=== PATIENT | male | born 1960 | race Caucasian/White ===

== ENCOUNTER 2017-07-20 22:32 | Observation (INO) ==
[2017-07-20] MEDS ORDERED: Prochlorperazine 10 MG/2 ML VIAL IVP ONE (22:45)
--- NOTE | 2017-07-20 22:48 | Emergency Department Note ---
Disposition Clinical Impression: Vertigo Nausea & vomiting Qualifiers: Vomiting type: unspecified Vomiting Intractability: unspecified Qualified Code( s): R11.2 - Nausea with vomiting, unspecified Disposition: Admitted As Inpatient Dizziness HPI - General Stated Complaint: CORIE, vomiting Time Seen by Provider: 07/20/17 22:35 Source: patient Limitations: no limitations Nursing Notes Reviewed: Yes Vital Signs Reviewed: Yes - History of Present Illness Pt Subjective Complaint: dizziness Onset (ago): hour(s) Timing: sudden onset Description: sense of movement, "room spinning" History of similar episodes: Yes (h/o vertigo) History of trauma: No Improves with: remaining still Worsens with: movement, position Associated symptoms: Reports: nausea, vomiting. Denies: ataxia, chest pain, confusion, diaphoresis, fever, chills, malaise, shortness of breath, syncope, weakness, vision changes, palpitations - Related Data Allergies Allergy/AdvReac Type Severity Reaction Status Date / Time Penicillins [PCN] Allergy Hives Verified 08/16/15 11:29 All systems ED: reviewed and negative except as stated. Review of Systems: As Per HPI Constitutional: Denies: fever, chills, weakness Eyes: Denies: vision change ENT ED: Denies: throat pain Cardiovascular: Denies: chest pain, palpitations, dyspnea on exertion Respiratory: Denies: cough, dyspnea Gastrointestinal: Reports: as per HPI. Denies: abdominal pain Genitourinary: Denies: dysuria Musculoskeletal: Denies: back pain, neck pain Integumentary: Denies: rash Neurological: Reports: as per HPI. Denies: headache, weakness, numbness, paresthesias Endocrine: Denies: fatigue Hematological/Lymphatic: Denies: easy bleeding Allergic/Immunologic: Denies: facial swelling Past Medical History - Past Medical History Medical history: Reports: GERD Psychiatric history: Reports: no psych history - Social History Smoking Status: Never smoker Smokeless Tobacco Status: No Alcohol use: Reports: rarely Drug use: Reports: none Physical Exam - General Limitations: no limitations, age General appearance: in no apparent distress - Head Head exam: atraumatic, normocephalic - Eye Eye exam: Present: EOMI. Absent: conjunctival injection, nystagmus, periorbital swelling, periorbital tenderness - ENT ENT exam: mucous membranes moist, normal external ear exam - Neck Neck exam: Present: normal inspection, full ROM. Absent: tenderness, lymphadenopathy - Chest Chest inspection: Present: normal inspection, symmetric chest wall rise - Respiratory Respiratory exam: Present: normal lung sounds bilaterally. Absent: respiratory distress, wheezes, stridor, accessory muscle use - Cardiovascular Cardiovascular exam: Present: regular rate, normal rhythm, normal heart sounds - Abdominal Exam Abdominal exam: Present: soft, Non-Tender - Extremities Exam Extremities exam: Present: full ROM - Back Exam Back exam: Present: full ROM. Absent: tenderness, CVA tenderness (R), CVA tenderness (L) - Neurological Exam Neurological exam: Present: alert, oriented X3 - Psychiatric Psychiatric exam: Present: normal affect, normal mood - Skin Skin exam: Present: warm, dry, intact, normal color. Absent: rash, cyanosis, diaphoresis Course Course Narrative: 57-year-old male complains of nausea and vomiting, and vertigo. He does mention a history of vertigo. He is accompanied by his son. Son states his symptoms started acutely, they are not sure of the exact time, but the estimate approximately two hours . They were eating at the bar in a restaurant. Son reports pt had only one sangria, no excessive drinking. Pt turned his head to talk to someone to his side when symptoms started. Feelings of "lightheaded" strated folowed by N/V. They went home but symptoms worsened which prompted visit to ED. Pt states he did not feel faint, denies pre-syncope. Son mentions that the patient does not look confused and is acting normally. Patient denies any weakness, near syncopal symptoms, chest pain, shortness of breath, recent illness. On exam. No gross focal neuro findings. No unilateral weakness. Pt Alert x Ox3 but appears uncomfortable and is actively vomiting food contents. Anti-emetics/antihistamines ordered. Work up initiated. Discussed with Dr. Marsh who agreed for CT scan of head and also advised benzo. - Reevaluation(s) Reevaluation #1: Pt had received IV Benadryl and Compazine for relief the relief, which was followed with IV Zofran, and a trial of by mouth meclizine. Nausea and vomiting have persisted. IV Ativan and no relief, followed by IV Phenergan. Did discuss with Dr. Marsh,, a stent with patient, and advised for admission for vertigo and N/V. Time: 00:59 Reevaluation #2: Patient now asleep. No active vomiting. Patient discussed with and accepted by hospitalist Dr. Zelaya. Time: 02:21 Vital Signs Temperature 0 F L 07/20/17 23:05 Pulse Rate 77 07/20/17 23:05 Respiratory Rate 20 07/20/17 23:05 Blood Pressure 134/107 07/20/17 23:05 O2 Sat by Pulse Oximetry 100 07/20/17 23:05 Temperature 97.5 F L 07/21/17 03:28 Pulse Rate 76 07/21/17 03:28 Respiratory Rate 18 07/21/17 03:28 Blood Pressure 113/70 07/21/17 03:28 O2 Sat by Pulse Oximetry 94 07/21/17 03:28 Oxygen Delivery Oxygen Delivery Room Air Dizziness - Medical Records Medical records reviewed: Yes I reviewed the patient's medical records. - Lab Data Result diagrams: 07/20/17 23:28 07/20/17 23:28 Lab Results 07/20/17 07/20/17 07/20/17 Range/Units 23:28 23:28 23:28 WBC 9.0 (4.3-11.1) K/mcL RBC 4.46 (4.19-5.50) M/mcL Hgb 13.2 (12.9-16.9) g/dL Hct 39.0 (37.5-50.1) % MCV 87.4 (83.0-100.0) fL MCH 29.6 (28.0-33.3) pg MCHC 33.8 (31.6-35.5) g/dL RDW 12.1 (11.5-14.5) % Plt Count 207 (140-400) K/mcL MPV 10.8 (9.4-12.4) fL Immature Gran % 0.4 (0-4) % Seg Neutrophils % 71.0 % Lymphocytes % 20.7 % Monocytes % 7.5 % Eosinophils % 0.3 % Basophils % 0.1 % Neutrophils # 6.4 (1.6-8.9) K/mcL Lymphocytes # 1.9 (0.6-4.6) K/mcL Monocytes # 0.7 (0.0-1.3) K/mcL Eosinophils # 0.0 (0.0-0.6) K/mcL Basophils # 0.0 (0.0-0.2) K/mcL PT 11.7 (9.4-12.1) Seconds INR 1.1 APTT 23.6 L (26.0-36.0) Seconds Sodium 138 (136-145) mEq/L Potassium 3.6 (3.5-5.1) mEq/L Chloride 105 (98-107) mEq/L Carbon Dioxide 24 (23-29) mEq/L BUN 15 (6-20) mg/dL Creatinine 0.76 (0.70-1.30) mg/dL Est GFR ( Amer) > 60 (> 60) Est GFR (Non-Af Amer) > 60 (> 60) BUN/Creatinine Ratio 20 (6-26) Glucose 134 H (70-105) mg/dL Calculated Osmolality 289 (280-300) Calcium 9.0 (8.6-10.3) mg/dL Troponin I (< 0.04) ng/mL 07/20/17 Range/Units 23:28 WBC (4.3-11.1) K/mcL RBC (4.19-5.50) M/mcL Hgb (12.9-16.9) g/dL Hct (37.5-50.1) % MCV (83.0-100.0) fL MCH (28.0-33.3) pg MCHC (31.6-35.5) g/dL RDW (11.5-14.5) % Plt Count (140-400) K/mcL MPV (9.4-12.4) fL Immature Gran % (0-4) % Seg Neutrophils % % Lymphocytes % % Monocytes % % Eosinophils % % Basophils % % Neutrophils # (1.6-8.9) K/mcL Lymphocytes # (0.6-4.6) K/mcL Monocytes # (0.0-1.3) K/mcL Eosinophils # (0.0-0.6) K/mcL Basophils # (0.0-0.2) K/mcL PT (9.4-12.1) Seconds INR APTT (26.0-36.0) Seconds Sodium (136-145) mEq/L Potassium (3.5-5.1) mEq/L Chloride (98-107) mEq/L Carbon Dioxide (23-29) mEq/L BUN (6-20) mg/dL Creatinine (0.70-1.30) mg/dL Est GFR ( Amer) (> 60) Est GFR (Non-Af Amer) (> 60) BUN/Creatinine Ratio (6-26) Glucose (70-105) mg/dL Calculated Osmolality (280-300) Calcium (8.6-10.3) mg/dL Troponin I < 0.03 (< 0.04) ng/mL Attestation Statement - Attestation Attestation: I, Lyndon Marsh MD, personally evaluated this patient and discussed their management with the midlevel provicer, PAC/[employer] ENGINE[employer]. I reviewed the midlevel provider 's note and agree with the documented findings, medical decision making, and plan of care. 57-year-old male presents to the emergency department with a complaint of acute onset of vertigo associated with nausea and vomiting. Symptoms started acutely about 2 hours prior to arrival when he turned his head. Patient has had a similar episode several years ago but not as severe. No headache or fever. No tinnitus. No difficulty with speech or swallowing. No focal numbness tingling or weakness. On examination patient is well-developed well-nourished male in no acute distress. He is alert. No cyanosis or diaphoresis. PERRL. Neck supple with no meningismus. No carotid bruit noted. Breath sounds are clear and equal bilaterally. Heart regular. Abdomen soft with normal bowel sounds. No gross focal neurological deficits. Labs reviewed and unremarkable. Chest x-ray negative. Head CT negative. EKG normal. No improvement with IV fluids and meds. The hospitalist, Dr. Zelaya, was consulted and accepted admission of the patient.
[2017-07-20] MEDS ORDERED: 0.9 % Sodium Chloride 500 ML ONE (22:51)
[2017-07-20] MEDS ORDERED: Ondansetron 4 MG/2 ML VIAL IVP ONE (23:01)
[2017-07-20] MEDS ORDERED: 0.9 % Sodium Chloride 1,000 ML IVC ONE (23:01)
[2017-07-20] MEDS ORDERED: *HR* LORazepam 2 MG/ML VIAL IVP ONE (23:14)
[2017-07-20] MEDS ORDERED: *HR* Promethazine 25 MG/ML VIAL IVP ONE (23:34)
[2017-07-20 23:39] LABS: Basophils % 0.1 %; Eosinophils % 0.3 %; Hemoglobin 13.2 g/dL (12.9-16.9); Immature Granulocytes % 0.4 % (0-4); Lymphocytes # 1.9 K/mcL (0.6-4.6); Lymphocytes % 20.7 %; Mean Corpuscular HGB Conc 33.8 g/dL (31.6-35.5); Mean Corpuscular Hemoglobin 29.6 pg (28.0-33.3); Mean Corpuscular Volume 87.4 fL (83.0-100.0); Mean Platelet Volume 10.8 fL (9.4-12.4); Monocytes # 0.7 K/mcL (0.0-1.3); Monocytes % 7.5 %; Neutrophils # 6.4 K/mcL (1.6-8.9); Platelet Count 207 K/mcL (140-400); Red Blood Count 4.46 M/mcL (4.19-5.50); Red Cell Distribution Width 12.1 % (11.5-14.5)
[2017-07-20 23:44] LABS: INR 1.1; Prothrombin Time 11.7 Seconds (9.4-12.1)
[2017-07-20 23:47] LABS: Activated Partial Thrombo Time 23.6 Seconds (26.0-36.0)
[2017-07-20 23:54] LABS: BUN/Creatinine Ratio 20 (6-26); Blood Urea Nitrogen 15 mg/dL (6-20); Carbon Dioxide 24 mEq/L (23-29); Chloride 105 mEq/L (98-107); Glucose 134 mg/dL (70-105); Osmolality,Calculated 289 (280-300); Potassium 3.6 mEq/L (3.5-5.1); Sodium 138 mEq/L (136-145); eGFR For African Americans > 60 (> 60); eGFR For Non-African Americans > 60 (> 60)
[2017-07-21] MEDS ORDERED: 0.9 % Sodium Chloride 1,000 ML IVC ONE (00:18)
[2017-07-21] MEDS ORDERED: Naloxone 0.4 MG/ML INJ IVP PRN (02:44)
[2017-07-21] MEDS ORDERED: *HR* Promethazine 25 MG/ML VIAL IVP PRN (02:47)
[2017-07-21] MEDS ORDERED: 0.9 % Sodium Chloride 1,000 ML IVC SCH (03:00)
--- NOTE | 2017-07-21 04:42 | Internal Med History&Physical ---
Date of Encounter: 07/21/17 Time of Encounter: 02:30 Assessment and Plan (1) DVT prophylaxis Current visit: Yes Status: Acute Heparin SC (2) Nausea & vomiting Current visit: Yes Status: Acute Caused by vertigo. Will place pt on IVF to avoid dehydration. Check BMP for any electrolytes abnormality. - Place pt on zofran and phenergan as needed for N/V. Qualifiers: Vomiting type: unspecified Vomiting Intractability: unspecified Qualified Code(s): R11.2 - Nausea with vomiting, unspecified (3) Vertigo Current visit: Yes Status: Acute Etiology is undetermined. Need to r/o central vertigo which is caused by CVA. Pt has no other neuro deficit at this point. - Cont closely monitor pt in tele. - MRI in AM to r/o cerebellar area stroke. Internal Medicine - H&P: HPI Chief complaint: vertigo Admitted From: Home Plans for Post Hospital Care: Home History of present illness: Mr. Patel is a 57 year old male w/o significant medical hx present to ER for vertigo since this evening. Pt is sleepy on multiple anti-emesis medications and Hx obtained from his son. In this evening arround 8:45pm, pt has sudden onset vertigo after he turned his head from side to side. Pt has nausea and vomited several times. No blood in vomiting. Pt has difficult to eat anyting b/o severe nausea and vomiting. Pt denies tinnitus. Pt denies recent runny nose or sore throat or other URI symptoms. Pt has similar vertigo 3 years ago but not so severe. In ER, head CT negative. Pt was treated symptomatically. Pt was admitted for further management. Past Med Surg Social Fam HX - Past Medical History Medical history: GERD Psychiatric history: no psych history - Past Surgical History Surgical History: herniorrhaphy - Social History Smoking Status: Never smoker Smokeless Tobacco Status: No Alcohol use: rarely Drug use: none - Family History Mother History Unknown: Yes Internal Medicine - H&P: Meds 3 Allergy/AdvReac Type Severity Reaction Status Date / Time Penicillins [PCN] Allergy Hives Verified 08/16/15 11:29 All Systems PM: A 10-system review of systems was performed and is negative for pertinent findings except as documented above in the HPI. - Constitutional Vitals: Temp Pulse Resp BP Pulse Ox 97.5 F L 76 18 113/70 94 07/21/17 03:28 07/21/17 03:28 07/21/17 03:28 07/21/17 03:28 07/21/17 03:28 General appearance: Present: A&O X 3, no acute distress, answers questions appropriately - Head Head exam: Present: atraumatic, normocephalic - Eye Eye exam: Present: PERRL, conjuntiva pink, sclera anicteric Pupils: Present: PERRL - Neck Neck exam general surgery: Present: supple, trachea midline. Absent: lymphadenopathy - Respiratory Respiratory exam: Present: CTAB. Absent: accessory muscle use, rales, rhonchi, wheezes - Cardiovascular Cardiovascular exam: Present: RRR, +S1, +S2. Absent: diastolic murmur, gallop, rubs, systolic murmur - GI/Abdominal GI/Abdominal exam: Present: normal bowel sounds, soft, no peritoneal signs. Absent: distended, tenderness - Extremities Exam Extremities exam: Present: warm, radial pulses palpable and symmetrical. Absent : calf tenderness, cyanotic, pedal edema - Neurological Exam Neurological exam: Present: CN II-XII intact, oriented X3, no focal deficits. Absent: pronater drift, facial droop, speech deficit - Skin Skin exam: Present: dry, intact Internal Med - H&P Results - Labs CBC & Chem 7: 07/20/17 23:28 07/20/17 23:28 - EKG Data EKG shows normal: sinus rhythm Rate: normal
[2017-07-21 04:48] LABS: Basophils % 0.2 %; Hematocrit 37.5 % (37.5-50.1); Hemoglobin 12.5 g/dL (12.9-16.9); Immature Granulocytes % 0.3 % (0-4); Lymphocytes # 0.8 K/mcL (0.6-4.6); Lymphocytes % 8.7 %; Mean Corpuscular HGB Conc 33.3 g/dL (31.6-35.5); Mean Corpuscular Hemoglobin 29.8 pg (28.0-33.3); Mean Corpuscular Volume 89.3 fL (83.0-100.0); Monocytes # 0.4 K/mcL (0.0-1.3); Monocytes % 4.5 %; Nucleated Red Blood Cells 0.2 /100 WBC (0); Platelet Count 188 K/mcL (140-400); Red Cell Distribution Width 12.3 % (11.5-14.5); Segmented Neutrophils % 86.3 %
[2017-07-21 05:12] LABS: BUN/Creatinine Ratio 20 (6-26); Blood Urea Nitrogen 14 mg/dL (6-20); Calcium 8.7 mg/dL (8.6-10.3); Carbon Dioxide 27 mEq/L (23-29); Chloride 107 mEq/L (98-107); Glucose 111 mg/dL (70-105); Magnesium 1.7 mg/dL (1.6-2.6); Osmolality,Calculated 289 (280-300); Potassium 4.2 mEq/L (3.5-5.1); Sodium 139 mEq/L (136-145); eGFR For African Americans > 60 (> 60); eGFR For Non-African Americans > 60 (> 60)
[2017-07-21] MEDS: Ondansetron 4 MG/2 ML VIAL IVP SCH ×2 (05:42→11:35)
[2017-07-21] MEDS ORDERED: *HR* Heparin 5,000 UNIT/ML VIAL SQ SCH (06:00)
--- NOTE | 2017-07-21 09:43 | Event Note ---
Date of Encounter: 07/21/17 Time of Encounter: 08:40 S: Mr. Patel is a 57-year-old male with pmh of GERD and previous episode of benign positional vertigo 3 years ago presented to the ED with vertigo, nausea, and vomiting for 1 day and was admitted for vertigo and n/v. CT of head and CXR was negative. Patient was given Zofran, Phenergan, Compazine and Antivert for nausea in the ED. Patient states that this morning he is feeling better and denies vertigo or nausea this morning. Patient was able to eat breakfast without nausea and change positions of his head without vertigo. Patient admits to tinnitus in his right ear but has had this since a trauma. Patient denies headache, numbness tingling, changes in vision. O: Vitals: wnl Labs: hemoglobin 12.5( 13.2) Exam: Constitutional: Alert, in no acute distress, well nourished, well developed. Head: Normocephalic, atraumatic, normal contour and symmetric, no masses, lesions or scars Ears: TM pearly purvis without bulging. L ear without fluid level. R eye cerumen blocking part of TM Eyes: EOMI, no nystagmus with changes in position of the head, vertigo unable to be reproduced with therese kuhn pike maneuver. Heart: Normal, regular rate and rhythm, no murmurs Lungs: Clear to auscultation, no wheezes, rales, or rhonchi Abdomen: Soft, nondistended, nontender, and no masses palpable, bowel sounds present and normal, no guarding or rigidity. Extremities: No clubbing, cyanosis, or edema, radial pulse +2/4, capillary refill <2sec. Skin: Skin warm and dry, no lesions, no rashes, no jaundice Neurologic: Cranial nerves II through XII grossly intact, no focal deficits, strength within normal limits in all extremities Psych: Cooperative with exam, good eye contact, cognitive function intact, judgment good insight good, speech clear, thought process logical, and goal directed A/P: 1. vertigo - resolved. Most likely 2/2 to benign positional vertigo, minimal concerns for tumor or stroke as patients symptoms have resolved quickly. Patient never smoked, not on any medications. Discussed risks and benefits of MRI. Possible d/c today. 2. Nausea/vomiting - resolved. Able to consumed breakfast without n/v. 3. DVT prophylaxis - heparin
[2017-07-21 11:02] VITALS: BP 123/70
--- NOTE | 2017-07-21 11:54 | Discharge Summary ---
<Enma Monroe - Last Filed: 07/21/17 17:00> Date of Encounter: 07/21/17 Time of Encounter: 11:50 - Discharge Diagnosis (1) Vertigo Priority: Primary Status: Acute (2) Nausea & vomiting Priority: Secondary Status: Resolved Qualifiers: Vomiting type: unspecified Vomiting Intractability: unspecified Qualified Code(s): R11.2 - Nausea with vomiting, unspecified (3) DVT prophylaxis Priority: Secondary Status: Acute - Discharge Medications Prescriptions: Ondansetron ODT [Zofran ODT] 4 mg SL Q8HR #10 tab.rapdis Meclizine [Antivert] 25 mg PO TID PRN #15 tablet PRN Reason: Dizziness Home Medications: Meclizine [Antivert] 25 mg PO TID PRN #15 tablet 07/21/17 [Rx] Ondansetron ODT [Zofran ODT] 4 mg SL Q8HR #10 tab.rapdis 07/21/17 [Rx] Allergies/Adverse Reactions: 3 Allergy/AdvReac Type Severity Reaction Status Date / Time Penicillins [PCN] Allergy Hives Verified 08/16/15 11:29 Procedures/tests Complete & Pending: Procedures Performed prior 72 hours Category Date Time Status MR head/brain wo con [MR] Routine MRI 07/21/17 02:49 Ordered Date of admission: 07/21/17 02:35 Primary care physician: Nitin Ibarra Discharging clinician: Nitin Ibarra Anticipated date of discharge: 07/21/17 - Patient Status Disposition: Home, Self-Care Condition: Good Functional capacity at discharge: independent ambulation Overall status at discharge: patient is back to baseline - Discharge Instructions Instructions: Benign Paroxysmal Positional Vertigo (DC) Follow Up With: Aileen Flores CNP [Partnered Physician] - 07/25/17 10:30 am Forms: ED Satisfaction Letter Additional Instructions: Follow-up with Dr. Crowley in 2-3 days. Take antivert as needed for vertigo. - Diet and Activity Activity: increase activity as tolerated Diet: advance to your usual diet Hospital course: Mr. Patel is a 57 year old male with pmh of GERD and previous episode of benign positional vertigo 3 years ago presented to the ED with vertigo, nausea, and vomiting for 1 day and was admitted for vertigo and n/v. CT of head and CXR was negative. Patient was given Zofran, Phenergan, Compazine and Antivert for nausea in the ED. Patient states that this morning he is feeling better and denies vertigo or nausea this morning. Patient was able to eat breakfast without nausea and change positions of his head without vertigo. Patient was instructed to obtain MRI and patient felt he did not need it as symptoms were resolved. Patient was medically advised MRI was needed at this time to r/o other causes of vertigo such as stroke or tumor. Patient discussed this with Dr. Ibarra and Dr. Monroe and understood the implications of not doing the MRI. We discussed the option of also doing the MRI as outpatient if symptoms occurred. Patient was discharged without any symptoms and stable. Instructed to f/u with Dr. Ibarra, his PCP, in 2-3 days. - Time Spent with Patient Total time spent providing and/or coordinating discharge services: - Constitutional Vitals: Temp Pulse Resp BP Pulse Ox 97.8 F 75 14 123/70 98 07/21/17 11:07/21/17 11:07/21/17 11:00 07/21/17 11:07/21/17 11:00 General appearance: Present: A&O X 3, no acute distress, answers questions appropriately - Other Additional findings: Constitutional: Alert, in no acute distress, well nourished, well developed. Head: Normocephalic, atraumatic, normal contour and symmetric, no masses, lesions or scars Ears: TM pearly purvis without bulging. L ear without fluid level. R eye cerumen blocking part of TM Eyes: EOMI, no nystagmus with changes in position of the head, vertigo unable to be reproduced with therese kuhn pike maneuver. Heart: Normal, regular rate and rhythm, no murmurs Lungs: Clear to auscultation, no wheezes, rales, or rhonchi Abdomen: Soft, nondistended, nontender, and no masses palpable, bowel sounds present and normal, no guarding or rigidity. Extremities: No clubbing, cyanosis, or edema, radial pulse +2/4, capillary refill <2sec. Skin: Skin warm and dry, no lesions, no rashes, no jaundice Neurologic: Cranial nerves II through XII grossly intact, no focal deficits, strength within normal limits in all extremities Psych: Cooperative with exam, good eye contact, cognitive function intact, judgment good insight good, speech clear, thought process logical, and goal directed <Nitin Ibarra - Last Filed: 07/21/17 17:51> Date of Encounter: 07/21/17 Date of admission: 07/21/17 02:35 Primary care physician: Nitin Ibarra [facility] course: Mr. Patel is a 57 year old male - Time Spent with Patient Total time spent providing and/or coordinating discharge services: - Constitutional Vitals: Temp Pulse Resp BP Pulse Ox 97.8 F 75 14 123/70 98 07/21/17 11:00 07/21/17 11:00 07/21/17 11:00 07/21/17 11:00 07/21/17 11:00 - Attending Attestation I examined this patient and my medical decision-making was reviewed with the Resident Physician. I agree with the documented findings, disposition and treatment plan as described except to the extent set forth below. By my bedside exam today, he had totally resolved his symptoms. He cannot produce nystagmus or vertigo. Stressed the importance of MRI just to be sure, although I think this is benign about 99% given his history. The son was in the room during this discussion. This is Dr. Jabari Ibarra
--- NOTE | 2017-07-24 17:48 | Electrocardiograph Report ---
[address] [address] Test Date: 2017-07-20 Pat Name: Mikhail Patel Department: 102 Room: 3A12 Gender: M Nail Technician: Pm : 1960 Requested By: Lowell Riley Order Number: [id number] Reading MD: Shivani Juarez Measurements Intervals [place] Rate: 70 P: 65 HI: 180 QRS: 34 QRSD: 93 T: 49 QT: 407 QTc: 427 Interpretive Statements SINUS RHYTHM Electronically Signed On 07-24-2017 17:47:12 EST by Shivani Juarez
== END 2017-07-21 12:51 | disposition home or self-care (01) ==
LOC: EMEROO 22:32 → 2ANU 22:32 → 3ANU 07-21 03:18
PROVIDERS: ADMIT Internal Medicine; ATTEND Registered Nurse